=== PATIENT | female | born 1980 | race American Indian/Alaskan Native ===

== ENCOUNTER 2016-07-08 23:27 | Emergency (ER) | payer BC ==
[2016-07-09 00:14] LABS: Basophils % (Auto) 0.5 % (0.0-1.8); Hematocrit 35.9 % (30.3-42.9); Hemoglobin 11.6 gm/dl (10.1-14.3); Mean Corpuscular HGB Conc 33 % (30-34); Mean Corpuscular Hemoglobin 30 pg (28-32); Mean Corpuscular Volume 91 fl (79-97); Platelet Count 196 K/mm3 (140-440); Red Blood Count 3.94 M/mm3 (3.65-5.03); Red Cell Distribution Width 13.8 % (13.2-15.2); White Blood Count 9.4 K/mm3 (4.5-11.0)
[2016-07-09 00:48] LABS: BUN/Creatinine Ratio 16.66; Blood Urea Nitrogen 10 mg/dL (7-17); Carbon Dioxide 23 mmol/L (22-30); Chloride 100.7 mmol/L (98-107); Glucose 100 mg/dL (65-100); Potassium 3.9 mmol/L (3.6-5.0); Sodium 139 mmol/L (137-145)
[2016-07-09 00:55] LABS: Anion Gap 19 mmol/L
--- NOTE | 2016-07-09 08:55 | Emergency Department Report ---
ED Chest Pain HPI - General Chief Complaint: Chest Pain Stated Complaint: CHEST PAIN Time Seen by Provider: 07/09/16 08:53 Source: patient Mode of arrival: Ambulatory Limitations: No Limitations - History of Present Illness Severity scale (0 -10): 3 - Related Data Previous Rx's Medication Instructions Recorded Last Taken Type Naproxen [Naprosyn] 500 mg PO BID PRN #14 tablet 07/09/16 Unknown Rx Allergies Allergy/AdvReac Type Severity Reaction Status Date / Time No Known Allergies Allergy Unverified 10/02/13 18:46 TRISTON score - Triston Score Age > 65: (0) No Aspirin use within the Past 7 Days: (0) No 3 or more CAD Risk Factors: (0) No 2 or more Angina events in past 24 hrs: (0) No Known CAD with more than 50% Stenosis: (0) No Elevated Cardiac Markers: (0) No ST Deviation Greater than 0.5mm: (0) No TRISTON Score: 0 ED Review of Systems ROS: Stated complaint: CHEST PAIN Other details as noted in HPI ED Past Medical Hx - Past Medical History Previous Medical History?: Yes Additional medical history: PERICARDITIS - Surgical History Past Surgical History?: No - Social History Smoking Status: Never Smoker Substance Use Type: Alcohol - Medications Home Medications: Home Medications Medication Instructions Recorded Confirmed Last Taken Type Naproxen [Naprosyn] 500 mg PO BID PRN #14 tablet 07/09/16 Unknown Rx ED Physical Exam - General Limitations: No Limitations ED Course Vital Signs 07/08/16 07/09/16 07/09/16 23:48 03:37 06:17 Temperature 98.6 F 98.0 F Pulse Rate 59 L 48 L 45 L Respiratory 18 18 15 Rate Blood Pressure 147/100 160/86 Blood Pressure 151/74 [Left] O2 Sat by Pulse 100 100 100 Oximetry 07/09/16 07/09/16 07/09/16 06:18 07:08 09:22 Temperature 98.1 F Pulse Rate 45 L 50 L 55 L Respiratory 16 16 Rate Blood Pressure Blood Pressure 130/77 127/66 [Left] O2 Sat by Pulse 100 100 Oximetry 07/09/16 11:20 Temperature 98.1 F Pulse Rate 55 L Respiratory 16 Rate Blood Pressure Blood Pressure 135/76 [Left] O2 Sat by Pulse 100 Oximetry ED Medical Decision Making - Lab Data Result diagrams: 07/08/16 23:59 05/19/17 23:59 - EKG Data -: EKG Interpreted by Me (time [id number]) EKG shows normal: sinus rhythm (sinus rhythm), axis (normal axis), intervals ( QTC 414 ms), ST-T waves (no ST changes, no STEMI) Rate: bradycardia (57 bpm) - Radiology Data Radiology results: report reviewed CXR: WNL - Medical Decision Making Results discussed with patient, PERC score: 0, patient low risk for cardiac related chest pain Instructed patient to return to the ED if her sx do not improve. Currently she is comfortable. pt to follow up with her PMD Critical care attestation.: If time is entered above; I have spent that time in minutes in the direct care of this critically ill patient, excluding procedure time. ED Disposition Clinical Impression: Chest wall pain Disposition: DISCHARGED TO HOME OR SELFCARE Is pt being admited?: No Condition: Stable Instructions: Chest Pain (ED) Prescriptions: Naproxen [Naprosyn] 500 mg PO BID PRN #14 tablet PRN Reason: Pain Referrals: PRIMARY CARE, [Primary Care Provider] - 3-5 Days
--- NOTE | 2016-07-09 10:10 | XRay Report ---
CHEST TWO VIEWS: 07/08/16 23:27:00 CLINICAL: Chest pain. COMPARISON: 10/02/13 FINDINGS: Stable mild cardiomegaly. Normal pulmonary vessels. The lungs are normally expanded and clear.The bones and soft tissues are unremarkable. IMPRESSION: Mild cardiomegaly but no CHF.
[2016-07-09 11:28] VITALS: BP 135/76
[2016-07-09] MEDS ORDERED: TORADOL IV ONE (11:28)
== END 2016-07-09 11:47 | disposition home or self-care (01) ==
LOC: ED 23:27
DX: R07.89 Other chest pain (principal)
CPT/HCPCS: 36415; 71020; 80048; 81025; 84484; 85025; 93005; 93010; 96374; 99285; J1885